=== PATIENT | female | born 1965 ===

== ENCOUNTER 2017-12-04 16:08 | Emergency (ER) | payer SELFPAY ==
[2017-12-04] MEDS ORDERED: Sodium Chloride 0.9% 1,000 ML IV ONE (16:42)
--- NOTE | 2017-12-04 16:49 | C.PDOC ---
History Of Present Illness 52 year old female patient with hx of HTN and HTN medication from [facility] [place]; no PMD presents to the ED with c/o x8 days of heavy vaginal bleeding. Patient reports her periods are often irregular. Patient states she is bleeding heavily going through 10 pads/day. Associated symptoms includes right back pain and intermittent dizziness for x3 days. , P:3. Patient denies abdominal pain, palpitations, chest pain, SOB, nausea, vomiting, fever and chills. Patient notes she does not have an OBGYN. Time Seen by Provider: 12/04/17 16:28 Chief Complaint (Nursing): Female Genitourinary History Per: Patient History/Exam Limitations: no limitations Onset/Duration Of Symptoms: Days (x8) Current Symptoms Are (Timing): Still Present Past Medical History Reviewed: Historical Data, Nursing Documentation, Vital Signs Vital Signs: Last Vital Signs Temp 99.6 F 12/04/17 16:20 Pulse 112 H 12/04/17 16:20 Resp 18 12/04/17 16:20 BP Pulse Ox 98 12/04/17 16:20 - Medical History PMH: Asthma, HTN Family History: States: Unknown Family Hx - Social History Hx Tobacco Use: No Hx Alcohol Use: No Hx Substance Use: No - Immunization History Hx Tetanus Toxoid Vaccination: No Hx Influenza Vaccination: No Hx Pneumococcal Vaccination: No Review Of Systems Except As Marked, All Systems Reviewed And Found Negative. Constitutional: Negative for: Fever, Chills Cardiovascular: Negative for: Chest Pain, Palpitations Respiratory: Negative for: Shortness of Breath Gastrointestinal: Negative for: Nausea, Vomiting, Abdominal Pain Genitourinary: Positive for: Vaginal Bleeding (heavy ) Musculoskeletal: Positive for: Back Pain (right) Neurological: Positive for: Dizziness Physical Exam - Physical Exam Appears: Non-toxic, No Acute Distress Skin: Normal Color, Warm, Dry Head: Normacephalic Eye(s): bilateral: Normal Inspection, EOMI, Conjunctiva Pale Chest: Symmetrical, No Deformity Cardiovascular: Rhythm Regular Respiratory: Normal Breath Sounds Gastrointestinal/Abdominal: Soft, No Tenderness, No Distention Back: No CVA Tenderness Extremity: Normal ROM (x4) Neurological/Psych: Oriented x3, Normal Speech ED Course And Treatment - Laboratory Results Result Diagrams: 12/04/17 17:32 12/04/17 17:32 O2 Sat by Pulse Oximetry: 98 (RA) Pulse Ox Interpretation: Normal Medical Decision Making Medical Decision Making: Impression: heavy vaginal bleeding Plans: -- EKG -- chem labs -- blood work -- IV fluids -- UA -- pelvis US [place] menopausal female c/o heavy vaginal bleeding. US shows fibroids. H&H is wnl. will d/c and f/u with MEDICAL CLAIMS REPRESENTATIVE Disposition Counseled Patient/Family Regarding: Studies Performed, Diagnosis, Need For Followup - Disposition Disposition: HOME/ ROUTINE Disposition Time: 21:00 Condition: STABLE Additional Instructions: Siga en la clinica Y un gynecologo. Instructions: Uterine Fibroids (DC), Perimenopause Forms: Gen Discharge Inst [place], [employer] [facility] ([place]er) - POA Present On Arrival: None - Clinical Impression Clinical Impression: Fibroids, Perimenopausal - Scribe Statement The provider has reviewed the documentation as recorded by the Shawibjaci Menon Do Provider Attestation: All medical record entries made by the Scribe were at my direction and personally dictated by me. I have reviewed the chart and agree that the record accurately reflects my personal performance of the history, physical exam, medical decision making, and the department course for this patient. I have also personally directed, reviewed, and agree with the discharge instructions and disposition.
[2017-12-04 17:41] LABS: BASO # 0.1 K/uL (0.0-0.2); BASO % 0.8 % (0.0-2.0); EOS # 0.2 K/uL (0.0-0.7); EOS % 1.8 % (0.0-4.0); HEMOGLOBIN 10.4 g/dL (11.0-16.0); LYMPH # 2.6 K/uL (1.0-4.3); LYMPH % 25.8 % (20.0-40.0); MEAN CORPUSCULAR HGB CONC 33.7 g/dL (33.0-37.0); MEAN PLATELET VOLUME 8.4 fL (7.2-11.7); MONO # 0.8 K/uL (0.0-0.8); MONO % 7.6 % (0.0-10.0); NEUT # 6.5 K/uL (1.8-7.0); RBC 3.48 Mil/uL (3.80-5.20); RED CELL DISTRIBUTION WIDTH 14.9 % (11.5-14.5); WHITE BLOOD COUNT 10.1 K/uL (4.8-10.8)
[2017-12-04 17:54] LABS: URINE BILIRUBIN NEGATIVE (NEGATIVE); URINE BLOOD 3+ (NEGATIVE); URINE CLARITY Turbid (Clear); URINE COLOR Red (YELLOW); URINE GLUCOSE (UA) 1+ mg/dL (Normal); URINE LEUKOCYTE ESTERASE NEG Leu/uL (Negative); URINE PROTEIN 2+ mg/dL (NEGATIVE); URINE UROBILINOGEN NORMAL mg/dL (0.2-1.0)
[2017-12-04 17:59] LABS: BLOOD UREA NITROGEN 15 mg/dL (7-17); CALCIUM 9.3 mg/dl (8.6-10.4); GFR NON-AFRICAN AMERICAN 58
[2017-12-04 21:16] VITALS: BP 165/92; PULSE 79; RESP 14; TEMP 98.6; O2SAT 96
--- NOTE | 2017-12-05 10:43 | US ---
Date of service: 12/04/2017 HISTORY: Heavy vaginal bleed, r/o fibroids COMPARISON: None available. TECHNIQUE: Transabdominal/transvaginal sonographic evaluation of pelvis performed FINDINGS: UTERUS: Uterus is enlarged and anteverted. Uterus measures approximately 12.1 x 9.8 x 10.2 cm. Multiple uterine fibroids are present. Large anterior midline uterine fibroid measuring approximately 8.4 x 7.1 x 8.8 cm. Another small fibroid measuring 1.3 x 1.1 x 1.8 cm present of. ENDOMETRIUM: Measures 7.6 mm in diameter. Unremarkable. CERVIX: No cervical abnormality identified. Cervix measures approximately 3.2 cm in length. RIGHT OVARY: Measures 4.4 x 3.1 x 3.1 cm. No solid mass. Normal flow. . Small cyst measuring 1.9 x 1.8 x 2.3 cm present. LEFT OVARY: Measures 4.4 x 2.4 x 3.8 cm. No solid mass. Normal flow. Small cyst measuring 2.2 x 2.0 x 1.9 cm present FREE FLUID: There is a small amount of free fluid seen in the cul de sac. OTHER FINDINGS: None. IMPRESSION: Enlarged fibroid uterus. Bilateral ovarian cysts. Small amount of free fluid within the cul de sac.
--- NOTE | 2017-12-06 20:59 | CARD ---
APPROVED REPORT Date of service: 12/04/2017 EKG Measurement Heart [id number] <Conclusion> Normal sinus rhythm Minimal voltage criteria for LVH, may be normal variant Borderline ECG
== END 2017-12-04 21:36 | disposition home or self-care (01) ==
LOC: C.ER 16:08
DX: D25.9 Leiomyoma of uterus, unspecified (principal); Z78.0 Asymptomatic menopausal state
CPT/HCPCS: 76830; 76856; 80048; 81001; 84702; 85025; 93005; 96360; 99285; J7030